=== PATIENT | male | born 1975 | race Caucasian/White ===

== ENCOUNTER 2022-03-10 15:19 | Outpatient (CLI) | payer OTHER | END 2022-03-10 15:20 | disposition home or self-care (01) | LOC: LAB 15:19 | PROVIDERS: ATTEND Specialist | DX: Z11.59 Encounter for screening for other viral diseases (principal); U07.1 COVID-19 ==

== ENCOUNTER 2022-03-14 04:55 | Day surgery (SDC) | payer OTHER ==
[~2022-03-14] VITALS: Ht 172.7 cm; Wt 83.0 kg
== END 2022-03-14 15:26 | disposition home or self-care (01) ==
LOC: CIR.AMB 04:55
PROVIDERS: ATTEND Specialist
DX: K42.9 Umbilical hernia without obstruction or gangrene (principal); Z20.822 Contact with and (suspected) exposure to COVID-19; Z86.16 Personal history of COVID-19